=== PATIENT | female | born 1990 | race Caucasian/White ===

== ENCOUNTER 2019-09-13 13:22 | Emergency (ER) | payer SELFPAY ==
[~2019-09-13] VITALS: Ht 157.5 cm; Wt 71.6 kg
[2019-09-13 13:43] LABS: MICROSCOPIC INDICATED
[2019-09-13] MEDS ORDERED: PHENAZOPYRIDINE 200 MG TABLET PO ONE (15:00)
[2019-09-13] MEDS ORDERED: CEFTRIAXONE 250 MG IM ONE (15:00)
[2019-09-13] MEDS ORDERED: AZITHROMYCIN 500 MG TABLET PO ONE (15:00)
[2019-09-13] MEDS ORDERED: LIDOCAINE-MPF 1%, 2ML ONE (15:22)
[2019-09-13] MEDS ORDERED: CEFTRIAXONE 250 MG ONE (15:23)
[2019-09-13] MEDS ORDERED: PHENAZOPYRIDINE 200 MG TABLET ONE (15:23)
[2019-09-13] MEDS ORDERED: AZITHROMYCIN 250 MG TABLET ONE (15:23)
--- NOTE | 2019-09-13 15:30 | NUR ---
PT MEDICATED ORDERED WITH ABX. PT DROWSY, AWAKENS TO NAME BEING CALLED. PELVIC EXAM PERFORMED BY KRYIE VINCENT WITH THIS RN AT BEDSIDE. PT AWARE WE ARE WAITING FOR LAB RESULTS. PT DENIES ANY PAIN/DISCOMFORT AT THIS TIME. PT ON CONT BP AND SPO2 MONITORS. CALL LIGHT WITHIN REACH. WILL CONT TO MONITOR PT.
[2019-09-13 16:19] LABS: CLUE CELLS PRESENT (NONE SEEN); WET PREP WBCS MODERATE (FEW)
--- NOTE | 2019-09-13 16:31 | NUR ---
PT CURRENTLY DOZING ON [place]. PT VERY DROWSY BUT AWAKENS TO NAME BEING CALLED. PT AO X 4. SKIN PWD. RESP EVEN AND UNLABORED. PT AWARE WE ARE WAITING FOR LAB RESULTS. CALL LIGHT WITHIN REACH. WILL CONT TO MONITOR PT.
[2019-09-13 17:54] VITALS: BP 111/60
== END 2019-09-13 18:11 | disposition home or self-care (01) ==
LOC: ED 18:05
DX: N30.01 Acute cystitis with hematuria (principal); K64.4 Residual hemorrhoidal skin tags; F15.129 Other stimulant abuse with intoxication, unspecified
CPT/HCPCS: 36415; 81001; 84703; 87077; 87086; 87210; 87491; 87591; 87808; 96372; 99285; J0696; 87147; 87186

== ENCOUNTER 2019-11-10 22:19 | Emergency (ER) | payer SELFPAY ==
[~2019-11-10] VITALS: Ht 157.5 cm; Wt 72.7 kg
[2019-11-10 23:12] LABS: HCG UR SG 1.025 (1.003-1.030)
[2019-11-10 23:16] LABS: MICROSCOPIC INDICATED
[2019-11-11] MEDS ORDERED: CEFTRIAXONE 250 MG ONE (00:22)
[2019-11-11] MEDS ORDERED: AZITHROMYCIN 500 MG TABLET ONE (00:22)
[2019-11-11] MEDS ORDERED: KETOROLAC 30 MG/1 ML ONE (00:22)
[2019-11-11 00:26] LABS: CLUE CELLS NONE SEEN (NONE SEEN); WET PREP WBCS MANY (FEW)
[2019-11-11] MEDS ORDERED: AZITHROMYCIN 500 MG TABLET PO ONE (00:30)
[2019-11-11] MEDS ORDERED: CEFTRIAXONE 250 MG IM ONE (00:30)
[2019-11-11] MEDS ORDERED: KETOROLAC 30 MG/1 ML IM ONE (00:30)
[2019-11-11 00:36] VITALS: BP 95/54
== END 2019-11-11 01:35 ==
LOC: ED 11-11 01:29
DX: K59.00 Constipation, unspecified (principal); A59.09 Other urogenital trichomoniasis; R10.9 Unspecified abdominal pain; R10.30 Lower abdominal pain, unspecified; R19.7 Diarrhea, unspecified; N89.8 Other specified noninflammatory disorders of vagina; F15.10 Other stimulant abuse, uncomplicated; F17.219 Nicotine dependence, cigarettes, with unspecified nicotine-induced disorders; Z72.9 Problem related to lifestyle, unspecified
CPT/HCPCS: 74021; 81001; 81025; 87086; 87210; 87491; 87591; 87808; 96372; 99284; 99406; J0696; J1885

== ENCOUNTER 2020-05-08 06:31 | Emergency (ER) | payer MEDICAID ==
[~2020-05-08] VITALS: Ht 157.5 cm; Wt 78.1 kg
--- NOTE | 2020-05-08 06:39 | NUR ---
pt ambulated to room 34, no acute distress at this time. pt to restroom to provide urine sample at this time. a&ox4
--- NOTE | 2020-05-08 06:48 | NUR ---
report and care to dayshift RN
--- NOTE | 2020-05-08 06:49 | NUR ---
ERMD AT BEDSIDE FOR EVALUATION.
--- NOTE | 2020-05-08 06:55 | NUR ---
PATIENT HERE WITH CHIEF C/O PAINFUL URINATION. PER PATIENT SYMPTOMS STARTED LAST NIGHT. NADN, URINE SAMPLE COLLECTED AND WALKED TO LAB.
[2020-05-08 07:14] LABS: HCG UR SG 1.017 (1.003-1.030)
[2020-05-08 07:15] LABS: MICROSCOPIC INDICATED
--- NOTE | 2020-05-08 07:47 | NUR ---
SPOKE WITH LAB, ASKED THAT CHLAMYDIA URINE BE ADDED TO URINE IN THE LAB.
[2020-05-08] MEDS ORDERED: CEFTRIAXONE 250 MG ONE (08:28)
[2020-05-08] MEDS ORDERED: AZITHROMYCIN 250 MG TABLET ONE (08:28)
[2020-05-08] MEDS ORDERED: CEFTRIAXONE 250 MG IM ONE (08:30)
[2020-05-08] MEDS ORDERED: AZITHROMYCIN 500 MG TABLET PO ONE (08:30)
[2020-05-08 08:43] VITALS: BP 113/59
--- NOTE | 2020-05-08 08:53 | NUR ---
Patient given discharge instructions and prescription and they have confirmed that they understand the instructions. Patient stable and ambulatory with steady gait from ED to private vehicle.
== END 2020-05-08 08:54 | disposition home or self-care (01) ==
LOC: ED 08:49
DX: N30.00 Acute cystitis without hematuria (principal); R10.30 Lower abdominal pain, unspecified; F17.200 Nicotine dependence, unspecified, uncomplicated
CPT/HCPCS: 81001; 81025; 87086; 87491; 87591; 99283; J0696

== ENCOUNTER 2020-08-28 15:50 | Emergency (ER) | payer MEDICAID ==
[~2020-08-28] VITALS: Ht 157.5 cm; Wt 82.5 kg
--- NOTE | 2020-08-28 16:09 | NUR ---
assumed care of pt. attempted to enter room to assess pt, pt in BR
--- NOTE | 2020-08-28 16:20 | NUR ---
pt still not in room
--- NOTE | 2020-08-28 16:35 | NUR ---
pt here c/o painfuil urination with increased frequency x2 days. pt denies hematuria. no other c/o at this time. urine asmple collected. pt requesting test ans STD test. pt reports that she is taking control. pt reports that she has a new sexual partner, denies vaginal pain or D/C. states that she is not always using STD protection. notified
--- NOTE | 2020-08-28 16:45 | NUR ---
Dr. Iglesias at bedside for eval
[2020-08-28 16:49] LABS: MICROSCOPIC INDICATED
[2020-08-28 16:51] LABS: HCG UR SG > 1.030 (1.003-1.030)
--- NOTE | 2020-08-28 17:18 | NUR ---
chart up for MD recheck
--- NOTE | 2020-08-28 17:35 | NUR ---
pt sleeping. easily arousable
[2020-08-28 17:47] VITALS: BP 105/60
== END 2020-08-28 17:50 | disposition home or self-care (01) ==
LOC: ED 16:16
DX: N30.00 Acute cystitis without hematuria (principal); F17.200 Nicotine dependence, unspecified, uncomplicated
CPT/HCPCS: 81001; 81025; 87077; 87086; 87186; 87491; 87591; 99283

== ENCOUNTER 2020-09-19 17:00 | Emergency (ER) | payer MEDICAID ==
[~2020-09-19] VITALS: Ht 157.5 cm; Wt 82.3 kg
[2020-09-19 17:06] VITALS: BP 117/68
--- NOTE | 2020-09-19 17:35 | NUR ---
TO ROOM FROM LOBBY.
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
[2020-09-19] MEDS ORDERED: LIDOCAINE-MPF 1%, 5ML ONE (19:44)
== END 2020-09-19 21:08 | disposition home or self-care (01) ==
LOC: ED 21:00
DX: S20.219A Contusion of unspecified front wall of thorax, initial encounter (principal); L02.11 Cutaneous abscess of neck; R00.0 Tachycardia, unspecified; F17.200 Nicotine dependence, unspecified, uncomplicated; X58.XXXA Exposure to other specified factors, initial encounter; Y93.89 Activity, other specified; Y92.89 Other specified places as the place of occurrence of the external cause; Y99.8 Other external cause status
CPT/HCPCS: 10060; 71046; 76536; 93005

== ENCOUNTER 2020-11-11 03:01 | Emergency (ER) | payer MEDICAID ==
[~2020-11-11] VITALS: Ht 157.5 cm; Wt 78.6 kg
[2020-11-11] MEDS ORDERED: ONDANSETRON ODT 4 MG ONE (03:12)
[2020-11-11] MEDS ORDERED: ONDANSETRON ODT 4 MG PO ONE (03:30)
[2020-11-11 04:35] VITALS: BP 110/63
--- NOTE | 2020-11-11 04:57 | NUR ---
ADDICTION RESOURCE FLYER GIVEN TO YOSHI AND EDUCATED ON IT
--- NOTE | 2020-11-11 05:16 | NUR ---
PATIENT BEING DISCHARGED. Patient A/0x4, VSS, ambulated without assistance.
== END 2020-11-11 05:21 | disposition home or self-care (01) ==
LOC: ED 04:45
DX: T40.1X1A Poisoning by heroin, accidental (unintentional), initial encounter (principal); F11.129 Opioid abuse with intoxication, unspecified; Z72.9 Problem related to lifestyle, unspecified; R00.0 Tachycardia, unspecified; F17.200 Nicotine dependence, unspecified, uncomplicated; X58.XXXA Exposure to other specified factors, initial encounter; Y93.89 Activity, other specified; Y92.89 Other specified places as the place of occurrence of the external cause; Y99.8 Other external cause status
CPT/HCPCS: 99283; Q0162